=== PATIENT | female | born 1950 | race Two or more races ===

== ENCOUNTER 2021-11-22 13:00 | Outpatient (CLI) | payer OTHER | END 2021-11-22 13:02 | disposition home or self-care (01) | LOC: NUCLEAR 13:00 | PROVIDERS: ATTEND Internal Medicine Endocrinology, Diabetes & Metabolism | DX: G30.9 Alzheimer's disease, unspecified (principal); F02.80 Dementia in other diseases classified elsewhere, unspecified severity, without behavioral disturbance, psychotic disturbance, mood disturbance, and anxiety | CPT/HCPCS: 78803; A9557 ==

== ENCOUNTER 2022-12-21 09:36 | Emergency (ER) | payer OTHER ==
[~2022-12-21] VITALS: Ht 147.3 cm; Wt 72.6 kg
[2022-12-21] MEDS ORDERED: ZESTORETIC 20-1 EACH PO (09:42)
[2022-12-21] MEDS ORDERED: NIFEDIPINE20 MG PO (09:43)
[2022-12-21] MEDS ORDERED: ZOCOR20 MG PO (09:43)
== END 2022-12-21 12:47 | disposition home or self-care (01) ==
LOC: ER 09:37
DX: J45.901 Unspecified asthma with (acute) exacerbation (principal); Z88.0 Allergy status to penicillin
CPT/HCPCS: 36415; 71045; 94640; 96365; 99285; J2930